=== PATIENT | male | born 1945 | race Caucasian/White ===

== ENCOUNTER 2018-03-31 08:24 | Day surgery (SDC) | payer OTHER ==
[~2018-03-31 08:24] MED LIST: ACETAMINOPHEN 1,000 MG/100 ML BTL IV ONE; CEFAZOLIN 2 Gram 2 GM/50 ML BAG IVPB ONE
[2018-03-31] MEDS ORDERED: PROPOFOL 10 MG/ML VIAL IV ONE (08:25)
[2018-03-31] MEDS ORDERED: KETOROLAC 30 MG/ML VIAL IVP ONE (08:25)
[2018-03-31] MEDS ORDERED: BUPIVACAINE 0.5% W/EPI MPF 30 ML VIAL IVP ONE (08:25)
[2018-03-31] MEDS ORDERED: LIDOCAINE 2% MDV (20MG/ML) 20ML VIAL IV ONE (08:25)
[2018-03-31] MEDS ORDERED: SEVOFLURANE 250 ML INH ONE (08:25)
[2018-03-31] MEDS ORDERED: *PACU ONLY* KETAMINE HCL 10 MG/ML (20ML) VIAL IV ONE (08:25)
[2018-03-31] MEDS ORDERED: MORPHINE SULFATE 4MG/ML PREFILLED SYRINGE IVP ONE (08:25)
[2018-03-31] MEDS ORDERED: METHYLPREDNISOLONE 40MG/VIAL IM ONE (08:25)
--- NOTE | 2018-04-01 15:00 | Operative Note ---
DATE OF SURGERY: 03/31/18 PREOPERATIVE DIAGNOSIS: INTERNAL DERANGEMENT OF THE LEFT KNEE. POSTOPERATIVE DIAGNOSES: 1. GRADE 3 CHONDROMALACIA PATELLA 2. 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 3. GRADE 3 CHONDROMALACIA OF THE MEDIAL FEMORAL CONDYLE. 4. DIFFUSE SYNOVITIS. 5. SPLIT TEAR INVOLVING THE POSTERIOR HORN OF THE MEDIAL MENISCUS. PROCEDURE: 1. LEFT KNEE ARTHROSCOPY WITH PARTIAL MEDIAL MENISCECTOMY. 2. LEFT KNEE ARTHROSCOPY WITH COMPLETE SYNOVECTOMY. 3. LEFT KNEE ARTHROSCOPY WITH CHONDROPLASTY OF THE PATELLOFEMORAL MEDIAL COMPARTMENT. STAFF SURGEON: LORRAINE MARCUS M.D. ANESTHESIA: GENERAL. PREPARATION: CHLORAPREP. INDIVIDUAL CONSIDERATIONS: NONE. PROCEDURE: The patient was taken to the Operating Room and placed supine on the operating table. He had a successful induction of a general anesthetic. His left lower extremity was prepped and draped in the usual fashion. The patient had a superolateral inflow cannula placed. The skin was infiltrated with 0.5% Marcaine with Epinephrine prior. The knee was then inflated with normal saline. A large clear effusion was drained. The knee was inflated with normal saline. An inferior medial and an inferior lateral portal were made in a similar fashion. The arthroscope was then placed through the inferior lateral portal up in the pouch. He had grade 3 change throughout the patella and this was smoothed with shaver. Synovitis in the pouch and primarily in the lateral gutter, the synovitis was debrided with a shaver. There were grade 3-4 changes in the notch with marginal cartilage loose medially, which was debrided. In the medial compartment, grade 3 chondromalacia of the medial femoral condyle from about 45-90, about the size the of a half dollar, which was smoothed. He had a split tear involving the posterior horn of the medial meniscus, which was debrided back to a stable rim with basket forceps and a shaver. The tibial plateau looked good. The cruciates were normal. Lateral compartment structures were normal. The knee was then irrigated out with saline to remove loose floating debris. The portals were closed with екатерина and 20 mL of 0.25% plain Marcaine along with 4 mg of Morphine and 40 mg DepoMedrol all were injected into the knee and a sterile Bulkee compressive dressing was applied. The patient tolerated the procedure well. Needle and sponge counts were correct. Estimated blood loss was minimal and he was taken back to Recovery in good condition. There were no complications. JOB NUMBER: [id number] MTDD
== END 2018-03-31 11:50 | disposition home or self-care (01) ==
LOC: SUR 08:24
PROVIDERS: ATTEND Orthopaedic Surgery
DX: S83.242A Other tear of medial meniscus, current injury, left knee, initial encounter (principal); M94.262 Chondromalacia, left knee; M22.42 Chondromalacia patellae, left knee; E78.00 Pure hypercholesterolemia, unspecified
CPT/HCPCS: 29881; 29876; 01400; J1885; J0690; J2274; J1030